=== PATIENT | male | born 1985 | race Caucasian/White ===

== ENCOUNTER 2019-11-27 08:09 | Emergency (ER) | payer MEDICARE, MEDICAID ==
[2019-11-27] MEDS ORDERED: LORazepam 1 MG Tab PO ONE (08:39)
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
--- NOTE | 2019-11-27 10:23 | CRLCR ---
INDICATION: Chest pain. TECHNIQUE: Chest 2 views COMPARISON: 01/21/2016. FINDINGS: Cardiovascular and mediastinum: Heart size and vasculature are normal in caliber and appearance. Lungs and pleural spaces: Lungs are clear. No sign of infiltrate or mass. No sign of pleural effusion. No pneumothorax. Bones and soft tissues: No significant findings. IMPRESSION: No acute findings and no significant changes from the prior exam. Dictated by Mike Lobo MD @ 11/27/2019 10:21:46 AM Dictated by: Mike Lobo MD @ 11/27/2019 10:21:55 (Electronically Signed)
[2019-11-27] MEDS ORDERED: LORazepam 2 MG/ML SDV IM ONE (10:44)
[2019-11-27 12:23] VITALS: BP 134/78; PULSE 87
== END 2019-11-27 14:40 | disposition left against medical advice (07) ==
LOC: JP.ED 08:09
DX: F41.9 Anxiety disorder, unspecified (principal); F15.90 Other stimulant use, unspecified, uncomplicated; I10 Essential (primary) hypertension; F17.210 Nicotine dependence, cigarettes, uncomplicated
CPT/HCPCS: 36415; 71045; 80048; 80305; 81003; 84443; 84484; 85025; 93005; 96372; 99284; A9270; J2060

== ENCOUNTER 2019-11-27 16:35 | Emergency (ER) | payer MEDICARE, MEDICAID ==
[2019-11-27 17:28] VITALS: BP 145/85; PULSE 71
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
== END 2019-11-27 18:07 | disposition home or self-care (01) ==
LOC: JP.ED 16:35
DX: F15.90 Other stimulant use, unspecified, uncomplicated (principal); F41.9 Anxiety disorder, unspecified; Z79.899 Other long term (current) drug therapy
CPT/HCPCS: 93010; 99283

== ENCOUNTER 2019-11-29 02:17 | Emergency (ER) | payer MEDICARE, MEDICAID ==
[2019-11-29 02:26] VITALS: BP 113/66; PULSE 75
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
== END 2019-11-29 03:06 | disposition home or self-care (01) ==
LOC: JP.ED 02:17
DX: F15.10 Other stimulant abuse, uncomplicated (principal); F17.210 Nicotine dependence, cigarettes, uncomplicated
CPT/HCPCS: 80305-QW; 99284

== ENCOUNTER 2019-12-03 20:13 | Emergency (ER) | payer MEDICARE, MEDICAID ==
[2019-12-03 20:43] VITALS: BP 133/70; PULSE 68
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
== END 2019-12-03 20:46 | disposition left against medical advice (07) ==
LOC: JP.ED 20:13
DX: F15.90 Other stimulant use, unspecified, uncomplicated (principal); F41.9 Anxiety disorder, unspecified; F31.9 Bipolar disorder, unspecified
CPT/HCPCS: 99284

== ENCOUNTER 2019-12-12 17:37 | Emergency (ER) | payer MEDICARE, MEDICAID ==
[~2019-12-12 17:37] MED LIST: hydrOXYzine HCl 25 MG Tab PO SCH
[2019-12-12 18:17] VITALS: BP 119/82; PULSE 89
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
[2019-12-12] MEDS ORDERED: LORazepam 1 MG Tab PO ONE (18:52)
[2019-12-12] MEDS ORDERED: Ibuprofen 800 MG Tab PO ONE (18:54)
[2019-12-12] MEDS ORDERED: hydrOXYzine HCl 25 MG Tab ONE (22:19)
== END 2019-12-12 22:36 | disposition home or self-care (01) ==
LOC: JP.ED 17:37
DX: F41.9 Anxiety disorder, unspecified (principal); F43.0 Acute stress reaction; F17.210 Nicotine dependence, cigarettes, uncomplicated
CPT/HCPCS: 99283; A9270

== ENCOUNTER 2020-01-12 21:14 | Emergency (ER) | payer MEDICARE, MEDICAID ==
[2020-01-12 21:49] VITALS: BP 128/89; PULSE 76
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
--- NOTE | 2020-01-13 11:10 | CR ---
Hand Comp Min 3V Rt CLINICAL HISTORY: Trauma FINDINGS: There is soft tissue swelling over the fourth and fifth MCP joints. There is minimal angulation of the distal fifth metacarpal which is likely from old healed fracture. IMPRESSION: No acute fracture Soft tissue swelling
== END 2020-01-12 22:24 | disposition home or self-care (01) ==
LOC: JP.ED 21:14
DX: S60.221A Contusion of right hand, initial encounter (principal); F17.210 Nicotine dependence, cigarettes, uncomplicated; W22.8XXA Striking against or struck by other objects, initial encounter
CPT/HCPCS: 73130-26-RT; 73130-RT; 99282; 99283